=== PATIENT | male | born 1980 | race Caucasian/White ===

== ENCOUNTER 2018-02-17 10:26 | Emergency (ER) | payer BC, OTHER ==
[2018-02-17 10:34] VITALS: Ht 175.3 cm
[2018-02-17] MEDS ORDERED: ASPIRIN 81 MG CHEW PO STA (11:02)
[2018-02-17 11:06] VITALS: O2SAT 98
--- NOTE | 2018-02-17 11:06 | EMERGENCY ROOM VISIT NOTE ---
History Report prepared by Jack: Hanny Gray Under the Supervision of: Dr. April Yost M.D. First contact with patient: 10:52 Chief Complaint: CHEST PAIN Stated Complaint: CHEST PAIN,SOB Nursing Triage Summary: pain lasting 10 min, squeezing. had similar event a few days ago that resolved with rest, today not relieved with rest. 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 He describes it as a tightness and pressure. He states he has some SOB and a cough but denies any leg pain, recent trips. He also notes that he had a similar episode to this a few days ago but it resolved with rest. The patient reports that his last normal bowel movement was this morning. He is a current smoker and notes he smokes about a pack a day. 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 Review of Systems See HPI for pertinent positives & negatives. A total of 10 systems reviewed and were otherwise negative. Past Medical & Surgical Medical Problems: (1) No significant past medical history No significant past medical history Family History No pertinent family history Social History Smoking Status: Current Every Day Smoker Smokeless Tobacco Use: Yes Alcohol Use: heavy Marital Status: single Housing Status: other ([place]) Occupation Status: employed Current/Historical Medications Miscellaneous Medications None (Patient States No Home Meds) Allergies Coded Allergies: No Known Allergies (Unverified , 08/07/10) Physical Exam Vital Signs Date Time Temp Pulse Resp B/P (MAP) Pulse Ox O2 Delivery O2 Flow Rate FiO2 02/17/18 16:07 87 18 110/ 98 Room Air 02/17/18 16:07 37.0 87 21 132/74 98 02/17/18 14:12 106 21 02/17/18 14:01 132/74 02/17/18 13:42 78 14 02/17/18 13:36 80 02/17/18 13:31 123/80 02/17/18 13:12 76 14 02/17/18 13:07 78 14 02/17/18 13:01 140/79 5/21/18 12:37 77 16 02/17/18 12:31 143/87 02/17/18 12:27 89 18 150/91 02/17/18 12:25 150/91 02/17/18 12:07 67 23 98 02/17/18 12:01 148/96 02/17/18 11:37 85 15 98 02/17/18 11:31 152/100 02/17/18 11:07 77 30 95 02/17/18 11:06 98 Room Air 02/17/18 11:02 175/89 02/17/18 11:01 68 21 95 Room Air 02/17/18 10:58 99 Room Air 02/17/18 10:56 64 11 99 02/17/18 10:51 67 12 100 02/17/18 10:49 66 02/17/18 10:45 141/90 02/17/18 10:34 37.0 76 20 144/94 99 Room Air Physical Exam Vital signs reviewed. General: Well-appearing male, in no significant distress. HEENT: No scleral icterus, PERRLA, neck supple. Atraumatic. Cardiovascular: Regular rate and rhythm, no extra sounds. Pulmonary: Clear to auscultation bilaterally, normal work of breathing. Abdomen: Soft, nontender, nondistended, positive bowel sounds. Musculoskeletal: Atraumatic, no peripheral edema. No reproducible chest tenderness. Neurologic: Patient awake alert and oriented x 3 Skin: Warm, dry, no rash Medical Decision & Procedures ER Provider Diagnostic Interpretation: Radiology results as stated below per my review and radiologist interpretation: SINGLE VIEW CHEST CLINICAL HISTORY: Left-sided chest pain. FINDINGS: An AP, portable, upright chest radiograph is obtained. No prior studies are available for comparison at the time of dictation. The cardiomediastinal silhouette is unremarkable. The lungs and pleural spaces are clear. No pneumothorax is seen. The bony thorax is grossly intact. IMPRESSION: No active disease in the chest. Electronically signed by: Wilfrid Turcios M.D. 02/17/2018 11:22 AM Laboratory Results 02/17/18 11:02 Red Blood Count 5.12, Mean Corpuscular Volume 89.8, Mean Corpuscular Hemoglobin 32.4, Mean Corpuscular Hemoglobin Concent 36.1, Mean Platelet Volume 9.6, Neutrophils (%) (Auto) 75.1, Lymphocytes (%) (Auto) 18.5, Monocytes (%) (Auto) 5.0, Eosinophils (%) (Auto) 0.7, Basophils (%) (Auto) 0.3, Neutrophils # (Auto) 5.61, Lymphocytes # (Auto) 1.38, Monocytes # (Auto) 0.37, Eosinophils # (Auto) 0.05, Basophils # (Auto) 0.02 02/17/18 11:02 Test 02/17/18 11:02 02/17/18 11:10 02/17/18 13:42 White Blood Count 7.46 K/uL (4.8-10.8) Red Blood Count 5.12 M/uL (4.7-6.1) Hemoglobin 16.6 g/dL (14.0-18.0) Hematocrit 46.0 % (42-52) Mean Corpuscular Volume 89.8 fL (80-100) Mean Corpuscular Hemoglobin 32.4 pg (25-34) Mean Corpuscular Hemoglobin Concent 36.1 g/dl (32-36) Platelet Count 238 K/uL (130-400) Mean Platelet Volume 9.6 fL (7.4-10.4) Neutrophils (%) (Auto) 75.1 % Lymphocytes (%) (Auto) 18.5 % Monocytes (%) (Auto) 5.0 % Eosinophils (%) (Auto) 0.7 % Basophils (%) (Auto) 0.3 % Neutrophils # (Auto) 5.61 K/uL (1.4-6.5) Lymphocytes # (Auto) 1.38 K/uL (1.2-3.4) Monocytes # (Auto) 0.37 K/uL (0.11-0.59) Eosinophils # (Auto) 0.05 K/uL (0-0.5) Basophils # (Auto) 0.02 K/uL (0-0.2) RDW Standard Deviation 39.6 fL (36.4-46.3) RDW Coefficient of Variation 12.1 % (11.5-14.5) Immature Granulocyte % (Auto) 0.4 % Immature Granulocyte # (Auto) 0.03 K/uL (0.00-0.02) Anion Gap 8.0 mmol/L (3-11) Estimated GFR () 102.2 Estimated GFR (Non- 88.2 BUN/Creatinine Ratio 8.1 (10-20) Calcium Level 9.3 mg/dl (8.5-10.1) Magnesium Level 2.1 mg/dl (1.8-2.4) Total Bilirubin 0.5 mg/dl (0.2-1) Direct Bilirubin 0.1 mg/dl (0-0.2) Aspartate Amino Transf (AST/SGOT) 19 U/L (15-37) Alanine Aminotransferase (ALT/SGPT) 21 U/L (12-78) Alkaline Phosphatase 76 U/L (45-117) Total Protein 8.5 gm/dl (6.4-8.2) Albumin 4.4 gm/dl (3.4-5.0) Lipase 117 U/L (73-393) Bedside D-Dimer 74 ng/mlFEU (0-450) Troponin I < 0.015 ng/ml (0-0.045) Laboratory results per my review. Medications Administered Medications (Trade) Dose Ordered Sig/Bear Route Start Time Stop Time Status Last Admin Dose Admin Aspirin (Aspirin Chew) 324 mg NOW STAT PO 02/17/18 11:02 02/17/18 11:03 DC 02/17/18 11:11 324 MG Lidocaine HCl (Viscous Lidocaine 2% Soln) 10 ml NOW STAT PO 02/17/18 11:54 02/17/18 11:55 DC 02/17/18 12:27 10 ML Al Hydroxide/Mg Hydroxide (Maalox Susp) 30 ml NOW STAT PO 02/17/18 11:54 02/17/18 11:55 DC 02/17/18 12:26 30 ML Ketorolac Tromethamine (Toradol Inj) 30 mg NOW STAT IV 02/17/18 14:26 02/17/18 14:27 DC 02/17/18 16:15 30 MG ECG Per My Interpretation Indication: chest pain Rate (beats per minute): 70 Rhythm: sinus rhythm Findings: no acute ischemic change, no ectopy, other (short GA interval) ED Course 1058: Past medical records reviewed. The patient was evaluated in room B8. A complete history and physical examination was performed. 1102: Ordered Aspirin 324 mg PO 1154: Ordered Maalox Susp 30 ml PO, Lidocaine HCl 10 ml PO 1426: Ordered Toradol Inj 30 mg IV 1500: Upon reevaluation, the patient appeared to have improvement of his symptoms. I discussed findings with him. He verbalized agreement of the treatment plan. He was discharged home. Medical Decision Differential diagnosis: Etiologies such as cardiac ischemia, aortic dissection, pulmonary embolism, pneumonia, pneumothorax, musculoskeletal, infections, pericarditis, myocarditis , esophageal rupture, gastrointestinal, as well as others were entertained. This patient was evaluated and appeared to be in no significant distress. IV access was obtained and laboratory work was drawn. Patient was placed on the hall monitor and is found to be in a normal sinus rhythm. EKG reveals no evidence of acute ischemia. Patient's cardiac enzymes are negative 2. D- dimer is normal. Chest x-ray is negative for acute pathology. Patient was informed of the findings. He was strongly encouraged to stop smoking and to follow-up with his PCP for reevaluation. He will return to the ER for worsening of symptoms or any medical concerns. Medication Reconcilliation Current Medication List: was personally reviewed by me Blood Pressure Screening Patient's blood pressure: Elevated blood pressure Blood pressure disposition: Elevated BP felt to be situational Impression Primary Impression: Non-cardiac chest pain Scribe Attestation The scribe's documentation has been prepared under my direction and personally reviewed by me in its entirety. I confirm that the note above accurately reflects all work, treatment, procedures, and medical decision making performed by me. Departure Information Dispostion Home / Self-Care Referrals No Doctor, Assigned (PCP) Forms Call Back Authorization, HOME CARE DOCUMENTATION FORM, IMPORTANT VISIT INFORMATION Patient Instructions My [facility] Additional Instructions Diagnosis: Noncardiac chest pain Ibuprofen 600 mg every 6 hours as needed for pain with food. Warm compresses and gentle stretching for relief of your discomfort. Please stop smoking as soon as possible. Refer to the handout provided. Follow up with your PCP this week for reevaluation. Return to the ER for worsening of symptoms or new medical concerns.
--- NOTE | 2018-02-17 11:23 | DIAGNOSTIC IMAGING REPORT ---
SINGLE VIEW CHEST CLINICAL HISTORY: Left-sided chest pain. FINDINGS: An AP, portable, upright chest radiograph is obtained. No prior studies are available for comparison at the time of dictation. The cardiomediastinal silhouette is unremarkable. The lungs and pleural spaces are clear. No pneumothorax is seen. The bony thorax is grossly intact. IMPRESSION: No active disease in the chest. Electronically signed by: Wilfrid Turcios M.D. 02/17/2018 11:22 AM Dictated Date/Time: 02/17/2018 11:19 AM
[2018-02-17 11:39] LABS: ALBUMIN 4.4 gm/dl (3.4-5.0); ALKALINE PHOSPHATASE 76 U/L (45-117); ALT/SGPT 21 U/L (12-78); AST/SGOT 19 U/L (15-37); BLOOD UREA NITROGEN 9 mg/dl (7-18); CALCIUM 9.3 mg/dl (8.5-10.1); CARBON DIOXIDE 26 mmol/L (21-32); CREATININE 1.07 mg/dl (0.60-1.40); GLUCOSE 95 mg/dl (70-99); LIPASE 117 U/L (73-393); SODIUM 137 mmol/L (136-145); TOTAL PROTEIN 8.5 gm/dl (6.4-8.2)
[2018-02-17 11:41] LABS: BASO % 0.3 %; BASO ABS # 0.02 K/uL (0-0.2); EOS % 0.7 %; EOS ABS # 0.05 K/uL (0-0.5); HEMOGLOBIN 16.6 g/dL (14.0-18.0); IG# 0.03 K/uL (0.00-0.02); LYMPH % 18.5 %; LYMPH ABS # 1.38 K/uL (1.2-3.4); MEAN CELL VOLUME 89.8 fL (80-100); MEAN CORPUSCULAR HEMOGLOBIN 32.4 pg (25-34); MEAN CORPUSCULAR HGB CONC 36.1 g/dl (32-36); MEAN PLATELET VOLUME 9.6 fL (7.4-10.4); MONO ABS # 0.37 K/uL (0.11-0.59); NEUT % 75.1 %; NEUT ABS # 5.61 K/uL (1.4-6.5); PLATELET COUNT 238 K/uL (130-400); RED CELL DISTRIBUTION WIDTH CV 12.1 % (11.5-14.5); RED CELL DISTRIBUTION WIDTH SD 39.6 fL (36.4-46.3); WHITE BLOOD COUNT 7.46 K/uL (4.8-10.8)
[2018-02-17] MEDS ORDERED: LIDOCAINE HCL 2% VISC SOLN 20 ML UDC PO STA (11:54)
[2018-02-17] MEDS ORDERED: ALUMINUM/MAGNESIUM SUSP 30 ML UDC PO STA (11:54)
[2018-02-17] MEDS ORDERED: KETOROLAC TROMETHAMINE 30 MG/ML VIAL IV STA (14:26)
[2018-02-17 16:07] VITALS: BP 110/74; PULSE 87; TEMP 37; O2SAT 98
== END 2018-02-17 16:07 | disposition home or self-care (01) ==
LOC: C.EDB 10:26
DX: R07.9 Chest pain, unspecified (principal); R06.02 Shortness of breath; F17.210 Nicotine dependence, cigarettes, uncomplicated